=== PATIENT | female | born 1935 | race Caucasian/White ===

== ENCOUNTER 2023-08-07 23:44 | Inpatient (IN) | payer MEDICARE, OTHER ==
[~2023-08-07] VITALS: Ht 154.9 cm; Wt 54.4 kg
[2023-08-07 23:48] VITALS: O2SAT 98
[2023-08-07] MEDS ORDERED: FURO-145 PO (23:55)
[2023-08-07] MEDS ORDERED: SACU1TAB PO (23:55)
[2023-08-07] MEDS ORDERED: DIPH25CA51 PO (23:55)
[2023-08-07] MEDS ORDERED: ASPI-1169 PO (23:55)
[2023-08-07] MEDS ORDERED: LORA-259 PO (23:55)
[2023-08-07] MEDS ORDERED: TEMA7.5C12 PO (23:55)
[2023-08-07] MEDS ORDERED: MULT-447 PO (23:55)
[2023-08-07] MEDS ORDERED: RIVA10TA PO (23:55)
[2023-08-08 00:47] LABS: APPEARANCE,URINE CLEAR (CLEAR); BILIRUBIN,URINE NEGATIVE (NEGATIVE); BLOOD, URINE 2+ Ery/uL (NEGATIVE); COLOR,URINE YELLOW (YELLOW); KETONES,URINE NEGATIVE (NEGATIVE); LEUKOCYTE ESTERASE ,URINE 3+ (NEGATIVE); NITRITE, URINE NEGATIVE (NEGATIVE); PROTEIN,URINE TRACE mg/dl (NEGATIVE); UGLUCOSE NEGATIVE (NEGATIVE); UROBILINOGEN,URINE 0.2 EU/dL (0.2)
[2023-08-08 01:03] LABS: BASOPHILS % (AUTO) 0.5 % (0.0-2.0); EOSINOPHILS # (AUTO) 0.1 K/uL (0.0-0.7); EOSINOPHILS % (AUTO) 0.8 % (0.0-6.0); HEMATOCRIT 40 % (33-45); HEMOGLOBIN 13.5 g/dL (11.5-14.8); LYMPHOCYTES # (AUTO) 1.5 K/uL (0.8-4.8); LYMPHOCYTES % (AUTO) 17.6 % (20.0-44.0); MEAN CORPUSCULAR HEMOGLOBIN 29 PG (26.0-33.0); MEAN CORPUSCULAR HGB CONC 34 g/dl (31.0-36.0); MEAN CORPUSCULAR VOLUME 87 fL (82-100); MONOCYTES # (AUTO) 0.6 K/uL (0.1-1.30); MONOCYTES % (AUTO) 7.2 % (2.0-12.0); NEUTROPHILS # (AUTO) 6.3 K/uL (1.8-8.9); NEUTROPHILS % (AUTO) 73.9 % (43.0-81.0); PLATELET COUNT (AUTO) 289 K/uL (150-450); RED BLOOD CELL COUNT(AUTO) 4.61 MIL/uL (4.0-5.2); RED CELL DISTRIBUTION WIDTH 14.1 % (11.5-15.0); WHITE BLOOD COUNT (AUTO) 8.5 K/uL (4.3-11.0)
[2023-08-08 01:07] LABS: ADD URINE CULTURE YES; BACTERIA,URINE 2+ /HPF (None Seen); MUCUS,URINE Few /LPF (None Seen); WBC,URINE 21-50 /HPF (0-3)
[2023-08-08 01:07] LABS: ALANINE AMINOTRANSFERASE 54 U/L (12-78); ALKALINE PHOSPHATASE 84 U/L (46-116); ASPARTATE AMINOTRANSFERASE 37 U/L (15-37); BILIRUBIN,DIRECT 0.2 mg/dL (0.0-0.2); BILIRUBIN,TOTAL 0.4 mg/dL (0.2-1.0); CARBON DIOXIDE 25 mmol/L (21-32); CHLORIDE 101 mmol/L (98-107); CREATININE 0.8 mg/dL (0.6-1.3); GLUCOSE 131 mg/dL (74-106); SODIUM SERUM 136 mmol/L (136-145); TOTAL PROTEIN, SERUM 6.3 g/dL (6.4-8.2); UREA NITROGEN, BLOOD 21 mg/dL (7-18)
[2023-08-08 01:09] LABS: AMPHETAMINE, URINE NEGATIVE (NEGATIVE); BARBITURATE, URINE NEGATIVE (NEGATIVE); BENZODIAZEPINE, URINE NEGATIVE (NEGATIVE); CANNABINOID, URINE NEGATIVE (NEGATIVE); COCCAINE, URINE NEGATIVE (NEGATIVE); OPIATE, URINE NEGATIVE (NEGATIVE); PHENCYCLIDINE SCREEN,URINE NEGATIVE (NEGATIVE)
[2023-08-08 01:10] LABS: ACETAMINOPHEN 0 ug/ml (10-30); ALCOHOL, BLOOD < 3 mg/dL (0-10); SALICYLATE 0.9 mg/dL (2.8-20.0)
[2023-08-08] MEDS ORDERED: NITROFURANTOIN/MONOHYDRATE MACROCRYSTALS 100 MG CAPSULE ONE (01:31)
[2023-08-08] MEDS: NITROFURANTOIN/MONOHYDRATE MACROCRYSTALS 100 MG CAPSULE PO ONE (01:39)
[2023-08-08] MEDS ORDERED: ACETAMINOPHEN 325 MG TABLET PO PRN ×2 (02:30→15:30)
[2023-08-08] MEDS ORDERED: MAGNESIUM HYDROXIDE 30 ML UDC PO PRN (02:30)
[2023-08-08] MEDS ORDERED: ZOLPIDEM TARTRATE 5 MG TABLET PO PRN (02:30)
[2023-08-08] MEDS ORDERED: DEXT1DRO6 EACHEYE (03:00)
[2023-08-08] MEDS: BLOOD SUGAR DIAGNOSTIC 1 EACH STRIP IN ONE (03:31)
[2023-08-08 08:00] VITALS: BP 135/79; TEMP 97.6; O2SAT 99
[2023-08-08] MEDS ORDERED: ACET325T53 PO (08:07)
[2023-08-08] MEDS ORDERED: DEXT1DRO3 EACHEYE (08:07)
[2023-08-08] MEDS: ENSURE ENLIVE 237 ML LIQUID (VANILLA) PO SCH (09:00)
[2023-08-08] MEDS: CEPHALEXIN MONOHYDRATE 250 MG CAPSULE PO SCH (09:00)
[2023-08-08] MEDS: LORAZEPAM 0.5 MG TABLET PO PRN (12:05)
[2023-08-08] MEDS: DIVALPROEX SODIUM 125 MG TABLET.DR PO SCH (13:00)
[2023-08-08 16:00] VITALS: BP 125/77; TEMP 97.9; O2SAT 98
[2023-08-08] MEDS ORDERED: POLYVINYL ALCOHOL 15 ML BOTTLE EACHEYE PRN (16:00)
[2023-08-08 20:00] VITALS: BP 152/93; TEMP 98.1; O2SAT 99
[2023-08-09 07:53] LABS: BASOPHILS # (AUTO) 0.1 K/uL (0.0-0.2); BASOPHILS % (AUTO) 0.8 % (0.0-2.0); EOSINOPHILS # (AUTO) 0.1 K/uL (0.0-0.7); EOSINOPHILS % (AUTO) 1.1 % (0.0-6.0); HEMATOCRIT 40 % (33-45); HEMOGLOBIN 13.5 g/dL (11.5-14.8); LYMPHOCYTES # (AUTO) 2.2 K/uL (0.8-4.8); LYMPHOCYTES % (AUTO) 32.5 % (20.0-44.0); MEAN CORPUSCULAR HEMOGLOBIN 29 PG (26.0-33.0); MEAN CORPUSCULAR HGB CONC 34 g/dl (31.0-36.0); MEAN CORPUSCULAR VOLUME 87 fL (82-100); MONOCYTES # (AUTO) 0.6 K/uL (0.1-1.30); MONOCYTES % (AUTO) 9.2 % (2.0-12.0); NEUTROPHILS # (AUTO) 3.8 K/uL (1.8-8.9); NEUTROPHILS % (AUTO) 56.4 % (43.0-81.0); PLATELET COUNT (AUTO) 276 K/uL (150-450); RED BLOOD CELL COUNT(AUTO) 4.61 MIL/uL (4.0-5.2); RED CELL DISTRIBUTION WIDTH 14.3 % (11.5-15.0); WHITE BLOOD COUNT (AUTO) 6.7 K/uL (4.3-11.0)
[2023-08-09 07:55] LABS: CALCIUM, SERUM 8.2 mg/dL (8.5-10.1); CARBON DIOXIDE 25 mmol/L (21-32); CHLORIDE 102 mmol/L (98-107); CREATININE 0.6 mg/dL (0.6-1.3); GLUCOSE 104 mg/dL (74-106); POTASSIUM 4.6 mmol/L (3.5-5.1); SODIUM SERUM 137 mmol/L (136-145); UREA NITROGEN, BLOOD 14 mg/dL (7-18)
[2023-08-09 07:58] LABS: CHOLESTEROL 167 mg/dL (<200); HDL CHOLESTEROL 95 mg/dL (40-60); LDL 49 mg/dL (0-99); TRIGLYCERIDES 51 mg/dL (30-150)
[2023-08-09 08:00] VITALS: BP 130/75; TEMP 98; O2SAT 97
[2023-08-09] MEDS: RIVAROXABAN 10 MG TABLET PO SCH (09:34)
[2023-08-09] MEDS: ASPIRIN 81 MG TAB.CHEW PO SCH (09:35)
[2023-08-09] MEDS: MULTIVIT W/MINERALS 1 TAB TABLET PO SCH (09:35)
[2023-08-09] MEDS: FUROSEMIDE 20 MG TABLET PO SCH (09:36)
[2023-08-09] MEDS: SACUBITRIL/VALSARTAN 1 EACH TABLET PO SCH (09:50)
[2023-08-09] MEDS: MAG HYDROX/AL HYDROX/SIMETH 30 ML UDC PO PRN (14:25)
[2023-08-09 16:00] VITALS: BP 131/78; TEMP 97.4; O2SAT 98
[2023-08-09 20:00] VITALS: BP 132/68; TEMP 97.6; O2SAT 98
[2023-08-10 08:00] VITALS: BP 130/78; TEMP 97.9; O2SAT 98
[2023-08-10 16:00] VITALS: BP 139/79; TEMP 98.6; O2SAT 98
[2023-08-10 20:00] VITALS: BP 152/98; TEMP 98.4; O2SAT 99
[2023-08-10] MEDS: MUPIROCIN OINT 2% 22 GM TUBE NS SCH (21:28)
[2023-08-11 08:00] VITALS: BP 125/79; TEMP 97.9; O2SAT 97
[2023-08-11 16:00] VITALS: BP 123/74; TEMP 97.8; O2SAT 99
[2023-08-11 21:12] VITALS: BP 114/60; TEMP 97.9; O2SAT 98
[2023-08-11] MEDS: diphenhydrAMINE HCL 25 MG CAPSULE PO PRN (21:36)
[2023-08-12 08:00] VITALS: BP 116/82; TEMP 98; O2SAT 99
[2023-08-12 11:44] VITALS: BP 134/69
[2023-08-12] MEDS: METOPROLOL SUCCINATE 50 MG TAB.SR.24H PO SCH (11:44)
== END 2023-08-12 14:45 | DRG 885 ==
LOC: ER 23:54 → GPS 08-08 01:29
PROVIDERS: ADMIT Nurse Practitioner Psychiatric/Mental Health; ATTEND Nurse Practitioner Family
DX: F31.9 Bipolar disorder, unspecified (principal); N39.0 Urinary tract infection, site not specified; E44.0 Moderate protein-calorie malnutrition; D68.59 Other primary thrombophilia; I47.10 Supraventricular tachycardia, unspecified; F29 Unspecified psychosis not due to a substance or known physiological condition; Z79.01 Long term (current) use of anticoagulants; F60.9 Personality disorder, unspecified; R41.9 Unspecified symptoms and signs involving cognitive functions and awareness; Z73.6 Limitation of activities due to disability; Z79.82 Long term (current) use of aspirin; Z79.899 Other long term (current) drug therapy; E88.09 Other disorders of plasma-protein metabolism, not elsewhere classified; B96.89 Other specified bacterial agents as the cause of diseases classified elsewhere; Z91.199 Patient's noncompliance with other medical treatment and regimen due to unspecified reason; R79.89 Other specified abnormal findings of blood chemistry
CPT/HCPCS: 36415; 71045-TC; 80048-TC; 80061-TC; 80076-TC; 81001; 82962-TC; 84443-TC; 85025-TC; 87081-TC; 87086-TC; 93307-TC; 97110-TC; 97116-TC; 97530-TC; G0480; Q0163